=== PATIENT | male | born 1955 | race African-American/Black ===

== ENCOUNTER 2023-04-20 09:37 | Outpatient (CLI) | payer BC, SELFPAY ==
--- NOTE | 2023-04-20 12:00 | NEURO_ITS ---
Impression: # Complains of numbness of feet. Recently diagnosed diabetic. 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 # Normal needle/EMG exam except mildly neurogenic EDB on the right. Nerve Conduction Studies Anti Sensory Summary Table Stim Site NR Peak (ms) P-T Amp (?V) Site1 Site2 Delta-P (ms) Dist (cm) Luisito (m/s) Left Sup Fibular Anti Sensory (Ant Lat Mall) NO RESPONSE 14 cm NR 14 cm Ant Lat Mall 16.0 Right Sup Fibular Anti Sensory (Ant Lat Mall) 14 cm 3.8 13.9 14 cm Ant Lat Mall 3.8 16.0 42 Left Sural Anti Sensory (Lat Mall) NO RESPONSE Calf NR Calf Lat Mall 16.0 Right Sural Anti Sensory (Lat Mall) Calf 3.8 3.0 Calf Lat Mall 3.8 16.0 42 Motor Summary Table Stim Site NR Onset (ms) O-P Amp (mV) Site1 Site2 Delta-0 (ms) Dist (cm) Luisito (m/s) Left Lateral Plantar Motor (ADM) Med Mall 4.9 1.1 Right Lateral Plantar Motor (ADM) Med Mall 5.0 0.0 Left Peroneal Motor (Vastus Med) Ankle 4.5 2.2 Popit Ankle 9.9 41.0 41 Popit 14.4 1.4 Right Peroneal Motor (Vastus Med) Ankle 4.5 0.5 Popit Ankle 10.2 43.0 42 Popit 14.7 0.4 Left Tibial Motor (Abd De Leon Brev) Ankle 4.5 0.5 Knee Ankle 7.4 44.0 59 Knee 11.9 0.3 Right Tibial Motor (Abd De Leon Brev) Ankle 4.7 0.8 Knee Ankle 10.4 47.0 45 Knee 15.1 0.9 F Wave Studies NR F-Lat (ms) L-R F-Lat (ms) Left Peroneal (Mrkrs) (EDB) 51.73 0.39 Right Peroneal (Mrkrs) (EDB) 51.35 0.39 Left Tibial (Mrkrs) (Abd Hallucis) 52.33 0.05 Right Tibial (Mrkrs) (Abd Hallucis) 52.38 0.05 EMG Side Muscle Nerve Root Ins Act Fibs Amp Dur Recrt Comment Right AntTibialis Dp Br Fibular L4-5 Nml Nml Nml Nml Nml Right Gastroc Tibial S1-2 Nml Nml Nml Nml Nml Right Fibularis Long Sup Br Fibular L5-S1 Nml Nml Nml Nml Nml Right Flex Dig Long Tibial L5-S2 Nml Nml Nml Nml Nml Right Ext Dig Brev Dp Br Fibular L5, S1 Nml Nml Nml >12ms Reduced Left AntTibialis Dp Br Fibular L4-5 Nml Nml Nml Nml Nml Left Gastroc Tibial S1-2 Nml Nml Nml Nml Nml Left Fibularis Long Sup Br Fibular L5-S1 Nml Nml Nml Nml Nml Left Flex Dig Long Tibial L5-S2 Nml Nml Nml Nml Nml Left Ext Dig Brev Dp Br Fibular L5, S1 Nml Nml Nml >12ms Reduced MTDD
== END 2023-04-20 09:38 | disposition home or self-care (01) ==
LOC: ANHNEURO 09:39
PROVIDERS: PCP Family Medicine; Visit Provider Podiatrist Foot & Ankle Surgery
DX: E11.40 Type 2 diabetes mellitus with diabetic neuropathy, unspecified (principal)
CPT/HCPCS: 95886; 95911